=== PATIENT | female | born 1965 | race Caucasian/White ===

== ENCOUNTER 2021-11-05 18:48 | Emergency (ER) | payer OTHER ==
[2021-11-05 20:25] LABS: BASOPHIL 0.4 % (0-2); EOSINOPHIL 1.5 % (0-5); HGB 13.2 g/dl (12.5-16.0); LYMPHOCYTE 31.5 % (15-48); MCH 28.3 pg (25.0-31.0); MCHC 32.2 g/dL (32.0-36.0); MCV 87.8 fL (78.0-100.0); MONOCYTE 7.7 % (0-12); NEUTROPHIL 58.7 % (41-80); NRBC 0; PLT 296 K/uL (150-400); RBC 4.67 M/uL (4.20-5.40); RDW 13.1 % (11.5-14.0); WBC 8.2 K/uL (4.0-10.5)
[2021-11-05 20:38] LABS: ALBUMIN 3.9 g/dL (3.4-5.0); BILIRUBIN - TOTAL 0.3 mg/dL (0.2-1.0); BUN/CREAT RATIO (CALC) 13.5 RATIO; CREATININE 1.33 mg/dL (0.51-0.95); GLOBULIN (CALCULATION) 3.9 g/dL; POTASSIUM 3.7 mmol/L (3.5-5.1); TOTAL PROTEIN 7.8 g/dL (6.4-8.2)
[2021-11-05 21:42] LABS: CORONAVIRUS 2019 SARS-COV-2 NEGATIVE (NEGATIVE); INFLUENZA A NAA NEGATIVE (NEGATIVE)
== END 2021-11-06 01:42 | disposition home or self-care (01) ==
LOC: FER 18:48
PROVIDERS: Internal Medicine; Physician Assistant
DX: R07.89 Other chest pain (principal); I12.9 Hypertensive chronic kidney disease with stage 1 through stage 4 chronic kidney disease, or unspecified chronic kidney disease; N18.30 Chronic kidney disease, stage 3 unspecified; Z20.822 Contact with and (suspected) exposure to COVID-19
CPT/HCPCS: 36415; 71045; 71250; 80053; 84484; 85025; 93005; U0002

== ENCOUNTER 2022-02-28 13:57 | Emergency (ER) | payer OTHER ==
[2022-02-28 15:06] LABS: BASOPHIL 0.6 % (0-2); HCT 40.3 % (37.0-47.0); HGB 12.9 g/dl (12.5-16.0); LYMPHOCYTE 32.1 % (15-48); MCH 27.9 pg (25.0-31.0); MONOCYTE 7.7 % (0-12); MPV 8.9 fL (6.0-9.5); NEUTROPHIL 57.4 % (41-80); NRBC 0; PLT 261 K/uL (150-400); RBC 4.63 M/uL (4.20-5.40); RDW 13.2 % (11.5-14.0); WBC 6.7 K/uL (4.0-10.5)
[2022-02-28 15:49] LABS: BUN/CREAT RATIO (CALC) 12.3 RATIO; CREATININE 1.14 mg/dL (0.51-0.95); POTASSIUM 3.7 mmol/L (3.5-5.1)
== END 2022-02-28 16:33 | disposition home or self-care (01) ==
LOC: FER 13:57
PROVIDERS: Nurse Practitioner Family
DX: R07.89 Other chest pain (principal); R42 Dizziness and giddiness; N18.30 Chronic kidney disease, stage 3 unspecified
CPT/HCPCS: 36415; 71045; 80048; 84484; 85025; 93005